=== PATIENT | female | born 1955 | race Caucasian/White ===

== ENCOUNTER 2021-07-31 13:01 | Emergency (ER) | payer MEDICARE, OTHER ==
[~2021-07-31 13:01] MED LIST: DALIRESP250 MCG PO; DESOXIMETASONE TP; ELIQUIS 2.5 MG2.5 MG PO; FERROUS SULFAT325 M2 PO; FLUZONE QU60 MCG/018 IM; GEODON80 MG PO; HYDROCHLOROTHIA25 MG PO; IBU800 MG PO; KLONOPIN TAB 00.5 MG PO; KLONOPIN0.5 MG PO; LISINOPRIL30 MG PO; MORPHINE SULFAT15 MG PO; NARCAN SPRAY; NEURONTIN800 MG PO; NORVASC 5 MG TAB5 MG PO; OMEPRAZOLE40 MG PO; PAROXETINE HCL40 MG PO; PAXIL20 MG PO; PERCOCET 5/325 T1 EA PO; ROXICODONE5 MG PO; SYMBICORT 160-1 INHA INH; VENTOLIN HFA 66.7 GM INH; ZESTRIL30 MG PO; ZIPRASIDONE HCL80 MG PO
== END 2021-07-31 14:45 | disposition home or self-care (01) ==
LOC: ER1 13:01
DX: S80.11XA Contusion of right lower leg, initial encounter (principal); J44.9 Chronic obstructive pulmonary disease, unspecified; I10 Essential (primary) hypertension; F41.9 Anxiety disorder, unspecified; W01.0XXA Fall on same level from slipping, tripping and stumbling without subsequent striking against object, initial encounter
CPT/HCPCS: 73590; 73610; 93971; 96372; 99283; J2270

== ENCOUNTER 2021-10-15 22:21 | Inpatient (IN) | payer MEDICARE, OTHER ==
[~2021-10-15] VITALS: Ht 167.6 cm; Wt 74.8 kg
[~2021-10-15 22:21] MED LIST changes: -KLONOPIN TAB 00.5 MG PO; -NEURONTIN800 MG PO; -OMEPRAZOLE40 MG PO; -PAXIL20 MG PO
[2021-10-15 23:04] LABS: HEMOGLOBIN 14.3 gm/dl (12.3-15.3); RED BLOOD COUNT 4.63 M/UL (4.00-5.10)
[2021-10-15 23:34] LABS: BUN/CREATININE RATIO 24 (0-10)
[2021-10-16] MEDS ORDERED: MORGIDOX100 MG PO (02:50)
[2021-10-16] MEDS ORDERED: PREDNISONE 20 M20 MG PO (02:50)
[2021-10-16] MEDS ORDERED: OMEPRAZOLE40 MG PO (11:47)
[2021-10-16] MEDS ORDERED: PAXIL40 MG PO (11:49)
[2021-10-16] MEDS ORDERED: NEURONTIN800 MG PO (11:50)
[2021-10-16] MEDS ORDERED: VOLTAREN EC 7575 MG PO (12:32)
[2021-10-16] MEDS ORDERED: PEPCID40 MG PO (12:33)
[2021-10-16] MEDS ORDERED: VISTARIL 50 MG50 MG PO (12:42)
[2021-10-16] MEDS ORDERED: ENDOCET 7.5-321 EACH PO (12:44)
[2021-10-16] MEDS ORDERED: MULTIVITAMIN1 EACH PO (12:45)
[2021-10-16] MEDS ORDERED: COLACE100 MG PO (12:45)
[2021-10-16] MEDS ORDERED: BISACODYL10 MG PR (12:46)
[2021-10-16] MEDS ORDERED: KLONOPIN1 MG PO (18:52)
[2021-10-17 02:46] LABS: RED BLOOD COUNT 4.66 M/UL (4.00-5.10)
[2021-10-17 02:55] LABS: WHITE BLOOD COUNT 10.1 K/UL (4.5-11.0)
[2021-10-18] MEDS ORDERED: SPIRIVA RESPIMAT4 GM INH ×2 (11:14→15:24)
[2021-10-18] MEDS ORDERED: MEDROL DOSEPAK 24 MG PO ×2 (11:14→15:24)
== END 2021-10-18 13:40 | disposition home or self-care (01) | DRG 189 ==
LOC: ER1 22:21 → CDU 10-16 04:10 → PROG CARE 10-16 04:54 → M/S 10-16 06:14 → PROG CARE 10-16 06:39
PROVIDERS: ADMIT Internal Medicine
PROC: 5A09357 Assistance with Respiratory Ventilation, Less than 24 Consecutive Hours, Continuous Positive Airway Pressure (ICD-10-PCS; principal; 2021-10-16)
PROC: 5A09357 Assistance with Respiratory Ventilation, Less than 24 Consecutive Hours, Continuous Positive Airway Pressure (ICD-10-PCS; 2021-10-17)
DX: J96.21 Acute and chronic respiratory failure with hypoxia (principal); J44.1 Chronic obstructive pulmonary disease with (acute) exacerbation; J96.22 Acute and chronic respiratory failure with hypercapnia; Z20.822 Contact with and (suspected) exposure to COVID-19; F32.A Depression, unspecified; F41.9 Anxiety disorder, unspecified; I10 Essential (primary) hypertension; Z87.891 Personal history of nicotine dependence; Z82.49 Family history of ischemic heart disease and other diseases of the circulatory system; Z88.0 Allergy status to penicillin; Z79.899 Other long term (current) drug therapy
CPT/HCPCS: 0240U; 36600; 71045; 80048; 80053; 82550; 82553; 82803; 83036; 83735; 83880; 84439; 84443; 84484; 85025; 86140; 93005; 94640; 94644; 94660; 94664; 94760; 96374; 99285; J0360; J1650; J1956; J2920; J7030